=== PATIENT | male | born 1935 | race Caucasian/White ===

== ENCOUNTER 2025-08-31 17:57 | Observation (INO) ==
--- NOTE | 2025-08-31 18:15 | EKG ---
Test Reason : stroke protocol Blood Pressure : */* mmHG Vent. Rate : 77 BPM Atrial Rate : 77 BPM P-R Int : 202 ms QRS Dur : 104 ms QT Int : 390 ms P-R-T Axes : 86 -36 74 degrees QTc Int : 441 ms Sinus rhythm with premature supraventricular complexes and with frequent premature ventricular complexes Left axis deviation Minimal voltage criteria for LVH, may be normal variant ( R in aVL ) Nonspecific ST abnormality Abnormal ECG No previous ECGs available Confirmed by Valentin Randall MD ([id number]) on 09/01/2025 6:40:50 AM Referred By: Confirmed By: Valentin Randall MD
--- NOTE | 2025-08-31 18:39 | RAD ---
EXAM: CHEST, 1 VIEW HISTORY: left side weakness; COMPARISON: None available. FINDINGS: The trachea is midline. The cardiac silhouette is unremarkable. The thoracic aorta is atherosclerotic and tortuous. The lungs are clear without focal infiltrate or effusion. The bony thorax is unremarkable. IMPRESSION: No acute cardiopulmonary disease. THIS IS AN ELECTRONICALLY VERIFIED FINAL REPORT 08/31/2025 6:35 PM - Electronically signed by Dong Alvarez MD
--- NOTE | 2025-08-31 18:41 | CT ---
EXAM: CT HEAD WITHOUT CONTRAST HISTORY: left side weakness; COMPARISON: CT dated October 14, 2020. TECHNIQUE: Axial CT images were obtained through the brain without contrast. Coronal and sagittal reformations were performed. All CT scans at this facility use dose modulation, iterative reconstruction, and/or weight based dosing when appropriate to reduce radiation dose to as low as reasonably achievable. FINDINGS: BRAIN: Acute intraparenchymal bleed involving the left parietal lobe extending to the left temporal lobe measures approximately 7.8 x 4.8 cm in the axial plane and 5.5 cm SI. 6 mm rightward deviation of midline structures measuring at the level of the 3rd ventricle. There is moderate to severe compression upon the body of the left lateral ventricle with mild dilatation of the right lateral ventricle. [place]-white matter differentiation is preserved.Decreased attenuation within the periventricular white matter and the centrum semiovale is nonspecific but would be consistent with chronic small-vessel ischemic changes. Basilar cisterns are preserved. No cerebellar tonsillar ectopia. No evidence for acute calvarial findings. MASTOID AIR CELLS: Visualized mastoid air cells are well aerated. PARANASAL SINUSES: Visualized portions of the paranasal sinuses are well aerated. ORBITS: Visualized portions demonstrate no evidence for acute findings. IMPRESSION: Acute intraparenchymal bleed involving the left parietal lobe extending to the left temporal lobe measures approximately 7.8 x 4.8 cm in the axial plane and 5.5 cm SI. 6 mm rightward deviation of midline structures measuring at the level of the 3rd ventricle. There is moderate to severe compression upon the body of the left lateral ventricle with mild dilatation of the right lateral ventricle. Recommend neurosurgical evaluation. THIS IS AN ELECTRONICALLY VERIFIED FINAL REPORT 08/31/2025 6:38 PM - Electronically signed by Jerome Camarena DO
--- NOTE | 2025-08-31 18:42 | DR.GENAD ---
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 Patient was last seen normal 30 minutes prior to arrival. Daughter in the room was the primary historian who stated that the patient sat down and started mumbling random incomprehensible words. No lucid interval. He was unresponsive to verbal commands. EMS was called and brought to ED for evaluation. Patient was taken to CT which revealed intraparenchymal bleed. Neuro consult was obtained and evaluated the patient. She stated that the patient would most likely need neurosurgery. Complaint/Symptoms Chief Complaint:: EMS report family called d/t pt found in recliner not responding verbally approx one hour ago. On EMS arrival, pt assessed to have apparent stroke-like sx w/ right side weakness and not verbally responding; unknown last known normal per EMS report COVID-19 Coronavirus risk:travel/contact w/high risk person: No Has patient experienced Coronavirus symptoms: No Source History Provided: EMS Mode of Arrival Mode of Arrival: EMS Timing Onset of Chief Complaint: 08/31/25 PMH PMH Past Medical History: Yes Past Medical History: Hypertension and [place] Past Surgical History: Yes Family History History of Family Medical Conditions: No Social History Lives With: Spouse Lives Where: Home Travel Risk Coronavirus risk:travel/contact w/high risk person: No Has patient experienced Coronavirus symptoms: No Infectious screening Have you traveled outside the country in the last 6 months?: No Isolation: Standard ROS Review of Systems Unable to Obtain Due To: Altered mental status PE Other Exam Other Exam: GEN: Lying On exam bed in no acute respiratory distress HEART: RRR LUNGS: CTABL, He is protecting his airway ABD: Soft, non tender, non distended, BS normal NEURO: Patient would not respond to verbal commands or questions. Aphasic with no speech Fixed Head gaze to the left. Bilateral lower extremity spasms. Patient could not follow commands to assess cranial nerves. Patient would not respond to sternal rub. No grimace. No smile. Patient could not hold his left upper extremity up against gravity Patient could not hold his right upper extremity up against gravity, fell to bed Bilateral lower extremities resistance against gravity, legs fell to bed Babinski upward fannning of the toes bilaterally ROR EKG Compared to prior EKG Dated: 08/31/25 Rate: 77 [place]: LAD Rhythm: NSR (With premature ventricular complexes and supraventricular complexes) ST: Normal Opioid Opioid Risk Tool Age (Ed box if 16-45): No History of Preadolescent Sexual Abuse: No Total: 0 Total Score Risk Category: Low Risk Copyright: Elvis SOTELO predicting aberrant behaviors Discharge Plan Diagnosis Discharge Problem: Hemorrhagic cerebrovascular accident (CVA) Discharge Plan Patient Disposition: XFER SHT-TRM HOSP Condition: Stable Health Concerns: Post Hospitalization: new medications and changes needed to prevent readmission or further decline. Pt educated and given instructions on all concerns. Plan of Treatment: Continue with present treatment and follow up plan. Pt is to keep follow up appointment as instructed and take medications as ordered. Orders to Discharge Patient Discharge Orders: Discharge by Transfer to Outside Facility (Routine); Ordered 08/31/25 Ordered By: Dionicio David Follow ups/Referrals Follow ups/Referrals: MANE SIMONS [Nurse Practitioner, Unknown] - 3 days MD,Misc [Primary Care Provider] - 3 days Instructions Stand Alone Forms: Find Help Web Site, Post Hospital Follow Up Care Print Language: [place] Provider Note Additional Notes (Bilateral blindness) who was found to have an intraparenchymal hemorrhage CT of head. Patient is protecting his airway and is hemodynamically stable with initial manual systolic BP of greater than 208/104 on admission. Was not able to get continuous BP monitoring on the monitor. Repeat manual BP was 142 systolic without medication. EKG revealed sinus rhythm with BP 77 with some supraventricular complexes and frequent premature reviewed for complexes. [facility] was contacted for transfer for neurosurgery evaluation. NIH score was 32. Dr. Pedro Ch excepted transfer. Patient will be airlifted to his destination.
[2025-08-31 19:04] LABS: RED CELL DISTRIBUTION WIDTH 14.1 % (11.6-16.5)
[2025-08-31 19:06] LABS: INR 1.10 (0.8-1.3); MEAN PLATELET VOLUME 7.7 fL (7.4-11.0)
[2025-08-31 19:14] LABS: CHOL/HDL RATIO 2.6 (0.0-5.0); COR NA(FOR HYPERGLY) 142 mmol/L (136-145); CREATININE 1.69 mg/dL (0.70-1.30); eGFR NON BLACK RACES 41 (>60)
[2025-08-31] MEDS: NS IV ONE (20:02)
[2025-08-31] MEDS: KEPPRA IV ONE (20:02)
[2025-08-31] MEDS: CARDENE IV PREMIX* 40 MG/200 ML 40 MG/200 ML PIGGYBACK IV ONE (20:04)
--- NOTE | 2025-08-31 21:23 | DR.GENAD ---
HPI Time Seen Time Seen by Provider: 08/31/25 18:30 PCP Primary Care Physician: Cathryn Sena Complaint/Symptoms Chief Complaint:: EMS report family called d/t pt found in recliner not responding verbally approx one hour ago. On EMS arrival, pt assessed to have apparent stroke-like sx w/ right side weakness and not verbally responding; unknown last known normal per EMS report Self Treatment fo Chief Complaint: OTBS at bedside 106 COVID-19 Coronavirus risk:travel/contact w/high risk person: No Has patient experienced Coronavirus symptoms: No Source History Provided: EMS Mode of Arrival Mode of Arrival: EMS Timing Onset of Chief Complaint: 08/31/25 PMH PMH Past Medical History: Yes Past Medical History: Hypertension and [place] Past Surgical History: Yes Family History History of Family Medical Conditions: No Social History Lives With: Spouse Lives Where: Home Travel Risk Coronavirus risk:travel/contact w/high risk person: No Has patient experienced Coronavirus symptoms: No Infectious screening Have you traveled outside the country in the last 6 months?: No Isolation: Standard PE Vital Signs Vitals: Vital Signs Temperature 97.7 F Pulse Rate 86 Pulse Rate 89 Pulse Rate 82 Pulse Rate 88 Pulse Rate 88 Pulse Rate 87 Pulse Rate 91 Pulse Rate 91 Pulse Rate 92 Pulse Rate 94 Pulse Rate 92 Pulse Rate 93 Pulse Rate 95 Pulse Rate 111 Pulse Rate 111 Pulse Rate 95 Pulse Rate 97 Pulse Rate 102 Pulse Rate 93 Pulse Rate 77 Pulse Rate 75 Pulse Rate 74 Pulse Rate 76 Pulse Rate 75 Respiratory Rate 20 Blood Pressure [Left Arm] 142/85 Blood Pressure 172/82 Blood Pressure 166/77 Blood Pressure 154/79 Blood Pressure 186/82 Blood Pressure 174/78 Blood Pressure 191/91 Blood Pressure 188/88 Blood Pressure 200/95 Blood Pressure 223/100 Blood Pressure 221/125 Blood Pressure 215/117 Blood Pressure 113/85 Blood Pressure 208/104 O2 Sat by Pulse Oximetry 93 O2 Sat by Pulse Oximetry 92 O2 Sat by Pulse Oximetry 93 O2 Sat by Pulse Oximetry 92 O2 Sat by Pulse Oximetry 92 O2 Sat by Pulse Oximetry 92 O2 Sat by Pulse Oximetry 91 O2 Sat by Pulse Oximetry 91 O2 Sat by Pulse Oximetry 92 O2 Sat by Pulse Oximetry 91 O2 Sat by Pulse Oximetry 92 O2 Sat by Pulse Oximetry 92 O2 Sat by Pulse Oximetry 92 O2 Sat by Pulse Oximetry 99 O2 Sat by Pulse Oximetry 98 O2 Sat by Pulse Oximetry 98 O2 Sat by Pulse Oximetry 99 O2 Sat by Pulse Oximetry 98 O2 Sat by Pulse Oximetry 99 O2 Sat by Pulse Oximetry 99 O2 Sat by Pulse Oximetry 98 O2 Sat by Pulse Oximetry 98 O2 Sat by Pulse Oximetry 94 O2 Sat by Pulse Oximetry 98 ROR Labs Reviewed 08/31/25 18:36 08/31/25 18:36 Laboratory: WBC 10.5 X10^3/uL (3.6-10.0) H 08/31/25 18:36 RBC 4.05 X10^6/uL (4.7-6.0) L 08/31/25 18:36 Hgb 12.2 g/dL (13.5-18.0) L 08/31/25 18:36 Hct 36.2 % (42.0-54.0) L 08/31/25 18:36 MCV 89.4 fL (80.0-100.0) 08/31/25 18:36 MCH 30.2 pg (27.0-34.0) 08/31/25 18:36 MCHC 33.8 g/dL (33.0-35.0) 08/31/25 18:36 RDW 14.1 % (11.6-16.5) 08/31/25 18:36 Plt Count 265 X10^3/uL (150.0-450.0) 08/31/25 18:36 MPV 7.7 fL (7.4-11.0) 08/31/25 18:36 Neut % (Auto) 58.7 % (42.0-75.0) 08/31/25 18:36 Lymph % (Auto) 24.6 % (21.0-51.0) 08/31/25 18:36 [place] % (Auto) 12.9 % (0.0-13.0) 08/31/25 18:36 Eos % (Auto) 2.7 % (0.9-2.9) 08/31/25 18:36 Baso % (Auto) 1.1 % (0.2-1.0) H 08/31/25 18:36 Neut # (Auto) 6.2 x10^3/uL (2.2-4.8) H 08/31/25 18:36 Lymph # (Auto) 2.6 X10^3/uL (1.3-2.9) 08/31/25 18:36 [place] # (Auto) 1.4 x10^3/uL (0.3-0.8) H 08/31/25 18:36 Eos # (Auto) 0.3 x10^3/uL (0.0-0.2) H 08/31/25 18:36 Baso # (Auto) 0.1 X10^3/uL (0.0-0.1) 08/31/25 18:36 Absolute Nucleated RBC 0.2 /100WBC 08/31/25 18:36 PT 14.3 SECONDS (11.8-14.3) 08/31/25 18:36 INR Target Range - 08/31/25 18:36 INR 1.10 (0.8-1.3) 08/31/25 18:36 APTT 33.6 SECONDS (22.9-36.5) 08/31/25 18:36 PTT Comment - 08/31/25 18:36 Fibrinogen 422 mg/dL (239-489) 08/31/25 18:36 Sodium 141 mmol/L (136-145) 08/31/25 18:36 Corrected Sodium 142 mmol/L (136-145) 08/31/25 18:36 Potassium 3.7 mmol/L (3.5-5.1) 08/31/25 18:36 Chloride 105 mmol/L (98-107) 08/31/25 18:36 Carbon Dioxide 23.0 mmol/L (21-32) 08/31/25 18:36 BUN 24 mg/dL (7-18) H 08/31/25 18:36 Creatinine 1.69 mg/dL (0.70-1.30) H 08/31/25 18:36 Est GFR (MDRD) Af Amer 49 (>60) L 08/31/25 18:36 Est GFR (MDRD) Non-Af 41 (>60) L 08/31/25 18:36 Glucose 128 mg/dL (65-99) H 08/31/25 18:36 Hemoglobin A1c 5.7 % 08/31/25 18:36 Calcium 9.3 mg/dL (8.5-10.1) 08/31/25 18:36 Corrected Calcium TNP 08/31/25 18:36 Total Bilirubin 0.50 mg/dL (0.2-1.0) 08/31/25 18:36 AST 23 Units/L (15-37) 08/31/25 18:36 ALT 11 Units/L (12-78) L 08/31/25 18:36 Alkaline Phosphatase 93 Units/L (46-116) 08/31/25 18:36 Creatine Kinase 54 Units/L (39-308) 08/31/25 18:36 Troponin I High Sens 28.0 ng/L (4.0-60.0) 08/31/25 18:36 Total Protein 7.5 g/dL (6.4-8.2) 08/31/25 18:36 Albumin 3.7 g/dL (3.4-5.0) 08/31/25 18:36 Globulin 3.8 g/dL (2.5-4.5) 08/31/25 18:36 Albumin/Globulin Ratio 1.0 Ratio (1.1-2.1) L 08/31/25 18:36 Triglycerides 111 mg/dL (0-150) 08/31/25 18:36 Cholesterol 134 mg/dL (0-200) 08/31/25 18:36 LDL Cholesterol, Calc 61 mg/dL (0-100) 08/31/25 18:36 HDL Cholesterol 51 mg/dL (40-60) 08/31/25 18:36 Cholesterol/HDL Ratio 2.6 (0.0-5.0) 08/31/25 18:36 Blood Type A POSITIVE 08/31/25 18:41 Antibody Screen Negative 08/31/25 18:36 Opioid Opioid Risk Tool Age (Ed box if 16-45): No History of Preadolescent Sexual Abuse: No Total: 0 Total Score Risk Category: Low Risk Copyright: Elvis SOTELO predicting aberrant behaviors Discharge Plan Diagnosis Discharge Problem: Hemorrhagic cerebrovascular accident (CVA) Discharge Plan Patient Disposition: 09 ADMITTED INPATIENT Condition: Stable Health Concerns: Post Hospitalization: new medications and changes needed to prevent readmission or further decline. Pt educated and given instructions on all concerns. Plan of Treatment: Continue with present treatment and follow up plan. Pt is to keep follow up appointment as instructed and take medications as ordered. Orders to Discharge Patient Discharge Orders: Discharge by Transfer to Outside Facility (Routine); Ordered 08/31/25 Ordered By: Dionicio David Follow ups/Referrals Follow ups/Referrals: MANE ESNA [Nurse Practitioner, Unknown] - 3 days ,Misc [Primary Care Provider] - 3 days Instructions Stand Alone Forms: Find Help Web Site, Post Hospital Follow Up Care Print Language: [place] Provider Note Additional Notes Due to transportation issues there is an extended period of time where the patient was left in the ER. Could not arrange helicopter transport due to shift change and weather. EMS was also difficult to come in a timely fashion. By the time of the ambulance ride of the helicopter was also available. We opted for the airlift due to travel time being shorter. By the time the helicopter mated to the hospital the family had not wished to put Is a patient in hospice. DNR was signed. He was admitted to hospital service. Dr. Shrestha agreed to handle the patient. Prognosis is very poor.
--- NOTE | 2025-08-31 23:16 | DR.GENAD ---
HPI Time Seen Time Seen by Provider: 08/31/25 18:30 PCP Primary Care Physician: Cathryn Sena Complaint/Symptoms Chief Complaint:: EMS report family called d/t pt found in recliner not responding verbally approx one hour ago. On EMS arrival, pt assessed to have apparent stroke-like sx w/ right side weakness and not verbally responding; unknown last known normal per EMS report Self Treatment fo Chief Complaint: OTBS at bedside 106 COVID-19 Coronavirus risk:travel/contact w/high risk person: No Has patient experienced Coronavirus symptoms: No Source History Provided: EMS Mode of Arrival Mode of Arrival: EMS Timing Onset of Chief Complaint: 08/31/25 PMH PMH Past Medical History: Yes Past Medical History: Hypertension and [place] Past Surgical History: Yes Family History History of Family Medical Conditions: No Social History Lives With: Spouse Lives Where: Home Travel Risk Coronavirus risk:travel/contact w/high risk person: No Has patient experienced Coronavirus symptoms: No Infectious screening Have you traveled outside the country in the last 6 months?: No Isolation: Standard PE Vital Signs Vitals: Vital Signs Temperature 97.7 F Pulse Rate 101 Pulse Rate 102 Pulse Rate 96 Pulse Rate 93 Pulse Rate 91 Pulse Rate 86 Pulse Rate 89 Pulse Rate 82 Pulse Rate 88 Pulse Rate 88 Pulse Rate 87 Pulse Rate 91 Pulse Rate 91 Pulse Rate 92 Pulse Rate 94 Pulse Rate 92 Pulse Rate 93 Pulse Rate 95 Pulse Rate 111 Pulse Rate 111 Pulse Rate 95 Pulse Rate 97 Pulse Rate 102 Pulse Rate 93 Pulse Rate 77 Pulse Rate 75 Pulse Rate 74 Pulse Rate 76 Pulse Rate 75 Respiratory Rate 20 Blood Pressure [Left Arm] 142/85 Blood Pressure 172/82 Blood Pressure 166/77 Blood Pressure 154/79 Blood Pressure 186/82 Blood Pressure 174/78 Blood Pressure 191/91 Blood Pressure 188/88 Blood Pressure 200/95 Blood Pressure 223/100 Blood Pressure 221/125 Blood Pressure 215/117 Blood Pressure 113/85 Blood Pressure 208/104 O2 Sat by Pulse Oximetry 97 O2 Sat by Pulse Oximetry 97 O2 Sat by Pulse Oximetry 96 O2 Sat by Pulse Oximetry 93 O2 Sat by Pulse Oximetry 93 O2 Sat by Pulse Oximetry 93 O2 Sat by Pulse Oximetry 92 O2 Sat by Pulse Oximetry 93 O2 Sat by Pulse Oximetry 92 O2 Sat by Pulse Oximetry 92 O2 Sat by Pulse Oximetry 92 O2 Sat by Pulse Oximetry 91 O2 Sat by Pulse Oximetry 91 O2 Sat by Pulse Oximetry 92 O2 Sat by Pulse Oximetry 91 O2 Sat by Pulse Oximetry 92 O2 Sat by Pulse Oximetry 92 O2 Sat by Pulse Oximetry 92 O2 Sat by Pulse Oximetry 99 O2 Sat by Pulse Oximetry 98 O2 Sat by Pulse Oximetry 98 O2 Sat by Pulse Oximetry 99 O2 Sat by Pulse Oximetry 98 O2 Sat by Pulse Oximetry 99 O2 Sat by Pulse Oximetry 99 O2 Sat by Pulse Oximetry 98 O2 Sat by Pulse Oximetry 98 O2 Sat by Pulse Oximetry 94 O2 Sat by Pulse Oximetry 98 ROR Labs Reviewed 08/31/25 18:36 08/31/25 18:36 Laboratory: WBC 10.5 X10^3/uL (3.6-10.0) H 08/31/25 18:36 RBC 4.05 X10^6/uL (4.7-6.0) L 08/31/25 18:36 Hgb 12.2 g/dL (13.5-18.0) L 08/31/25 18:36 Hct 36.2 % (42.0-54.0) L 08/31/25 18:36 MCV 89.4 fL (80.0-100.0) 08/31/25 18:36 MCH 30.2 pg (27.0-34.0) 08/31/25 18:36 MCHC 33.8 g/dL (33.0-35.0) 08/31/25 18:36 RDW 14.1 % (11.6-16.5) 08/31/25 18:36 Plt Count 265 X10^3/uL (150.0-450.0) 08/31/25 18:36 MPV 7.7 fL (7.4-11.0) 08/31/25 18:36 Neut % (Auto) 58.7 % (42.0-75.0) 08/31/25 18:36 Lymph % (Auto) 24.6 % (21.0-51.0) 08/31/25 18:36 [place] % (Auto) 12.9 % (0.0-13.0) 08/31/25 18:36 Eos % (Auto) 2.7 % (0.9-2.9) 08/31/25 18:36 Baso % (Auto) 1.1 % (0.2-1.0) H 08/31/25 18:36 Neut # (Auto) 6.2 x10^3/uL (2.2-4.8) H 08/31/25 18:36 Lymph # (Auto) 2.6 X10^3/uL (1.3-2.9) 08/31/25 18:36 [place] # (Auto) 1.4 x10^3/uL (0.3-0.8) H 08/31/25 18:36 Eos # (Auto) 0.3 x10^3/uL (0.0-0.2) H 08/31/25 18:36 Baso # (Auto) 0.1 X10^3/uL (0.0-0.1) 08/31/25 18:36 Absolute Nucleated RBC 0.2 /100WBC 08/31/25 18:36 PT 14.3 SECONDS (11.8-14.3) 08/31/25 18:36 INR Target Range - 08/31/25 18:36 INR 1.10 (0.8-1.3) 08/31/25 18:36 APTT 33.6 SECONDS (22.9-36.5) 08/31/25 18:36 PTT Comment - 08/31/25 18:36 Fibrinogen 422 mg/dL (239-489) 08/31/25 18:36 Sodium 141 mmol/L (136-145) 08/31/25 18:36 Corrected Sodium 142 mmol/L (136-145) 08/31/25 18:36 Potassium 3.7 mmol/L (3.5-5.1) 08/31/25 18:36 Chloride 105 mmol/L (98-107) 08/31/25 18:36 Carbon Dioxide 23.0 mmol/L (21-32) 08/31/25 18:36 BUN 24 mg/dL (7-18) H 08/31/25 18:36 Creatinine 1.69 mg/dL (0.70-1.30) H 08/31/25 18:36 Est GFR (MDRD) Af Amer 49 (>60) L 08/31/25 18:36 Est GFR (MDRD) Non-Af 41 (>60) L 08/31/25 18:36 Glucose 128 mg/dL (65-99) H 08/31/25 18:36 Hemoglobin A1c 5.7 % 08/31/25 18:36 Calcium 9.3 mg/dL (8.5-10.1) 08/31/25 18:36 Corrected Calcium TNP 08/31/25 18:36 Total Bilirubin 0.50 mg/dL (0.2-1.0) 08/31/25 18:36 AST 23 Units/L (15-37) 08/31/25 18:36 ALT 11 Units/L (12-78) L 08/31/25 18:36 Alkaline Phosphatase 93 Units/L (46-116) 08/31/25 18:36 Creatine Kinase 54 Units/L (39-308) 08/31/25 18:36 Troponin I High Sens 28.0 ng/L (4.0-60.0) 08/31/25 18:36 Total Protein 7.5 g/dL (6.4-8.2) 08/31/25 18:36 Albumin 3.7 g/dL (3.4-5.0) 08/31/25 18:36 Globulin 3.8 g/dL (2.5-4.5) 08/31/25 18:36 Albumin/Globulin Ratio 1.0 Ratio (1.1-2.1) L 08/31/25 18:36 Triglycerides 111 mg/dL (0-150) 08/31/25 18:36 Cholesterol 134 mg/dL (0-200) 08/31/25 18:36 LDL Cholesterol, Calc 61 mg/dL (0-100) 08/31/25 18:36 HDL Cholesterol 51 mg/dL (40-60) 08/31/25 18:36 Cholesterol/HDL Ratio 2.6 (0.0-5.0) 08/31/25 18:36 Blood Type A POSITIVE 08/31/25 18:41 Antibody Screen Negative 08/31/25 18:36 Opioid Opioid Risk Tool Age (Ed box if 16-45): No History of Preadolescent Sexual Abuse: No Total: 0 Total Score Risk Category: Low Risk Copyright: Elvis SOTELO predicting aberrant behaviors Discharge Plan Diagnosis Discharge Problem: Hemorrhagic cerebrovascular accident (CVA) Discharge Plan Patient Disposition: ADMITTED INPATIENT Condition: Stable
[2025-09-01] MEDS: OFIRMEV IV 1000 MG VIAL 1,000 MG/100 ML VIAL IV PRN (12:58)
[2025-09-01] MEDS: ISOPTO ATROPINE SL PRN (12:58)
[2025-09-01] MEDS: ATIVAN INJ 2 MG VIAL IVP PRN (12:58)
--- NOTE | 2025-09-01 13:27 | DR.H&P ---
H&P History & Physical for Day of: H&P Date: 09/01/25 Chief Complaint Chief Complaint: stroke History of Present Illness History of Present Illness: Patient seen with nurse and daughter at bedside. Was found in his recliner with abnormal mentation and unilateral weakness. Transported to ER where he was found to have a large hemorrhagic stroke. Initial plans were to [facility] [place] for neurosurgical consultation. After discussion, family opted for palliative care and hospice referral. He was admitted overnight for supportive care. There have been no changes throughout the night in the morning per daughter and staff. Has not woken up throughout the night. Social: Local resident, no tobacco/alcohol/illicit drug use. He is . ROS: 12 point ROS unobtainable from patient. Nurses and daughter only report sleep throughout the night. Slightly ragged breathing. PE: Thin, well-developed, well-nourished, elderly male in no acute distress. GCS of 3. Regular, slightly tachypneic respirations. There are some referred upper airway noises along with coarse breath sounds throughout the lungs. Heart regular rate and rhythm. Bowel sounds are present but soft. Belly is nontender nondistended. Past Medical History Past Medical History: Hypertension and HI Past Surgical History Additional Surgical History: coronary catheterization Medications Home Medications: Home Medications Medication Instructions Recorded Confirmed Type Unobtainable 08/31/25 08/31/25 History Allergies Allergies Allergy/AdvReac Type Severity Reaction Status Date / Time Sulfa (Sulfonamide Allergy Verified 08/31/25 18:26 Antibiotics) Labs 08/31/25 18:36 08/31/25 18:36 Labs: Laboratory WBC 10.5 X10^3/uL (3.6-10.0) H 08/31/25 18:36 RBC 4.05 X10^6/uL (4.7-6.0) L 08/31/25 18:36 Hgb 12.2 g/dL (13.5-18.0) L 08/31/25 18:36 Hct 36.2 % (42.0-54.0) L 08/31/25 18:36 MCV 89.4 fL (80.0-100.0) 08/31/25 18:36 MCH 30.2 pg (27.0-34.0) 08/31/25 18:36 MCHC 33.8 g/dL (33.0-35.0) 08/31/25 18:36 RDW 14.1 % (11.6-16.5) 08/31/25 18:36 Plt Count 265 X10^3/uL (150.0-450.0) 08/31/25 18:36 MPV 7.7 fL (7.4-11.0) 08/31/25 18:36 Neut % (Auto) 58.7 % (42.0-75.0) 08/31/25 18:36 Lymph % (Auto) 24.6 % (21.0-51.0) 08/31/25 18:36 [place] % (Auto) 12.9 % (0.0-13.0) 08/31/25 18:36 Eos % (Auto) 2.7 % (0.9-2.9) 08/31/25 18:36 Baso % (Auto) 1.1 % (0.2-1.0) H 08/31/25 18:36 Neut # (Auto) 6.2 x10^3/uL (2.2-4.8) H 08/31/25 18:36 Lymph # (Auto) 2.6 X10^3/uL (1.3-2.9) 08/31/25 18:36 [place] # (Auto) 1.4 x10^3/uL (0.3-0.8) H 08/31/25 18:36 Eos # (Auto) 0.3 x10^3/uL (0.0-0.2) H 08/31/25 18:36 Baso # (Auto) 0.1 X10^3/uL (0.0-0.1) 08/31/25 18:36 Absolute Nucleated RBC 0.2 /100WBC 08/31/25 18:36 PT 14.3 SECONDS (11.8-14.3) 08/31/25 18:36 INR Target Range - 08/31/25 18:36 INR 1.10 (0.8-1.3) 08/31/25 18:36 APTT 33.6 SECONDS (22.9-36.5) 08/31/25 18:36 PTT Comment - 08/31/25 18:36 Fibrinogen 422 mg/dL (239-489) 08/31/25 18:36 Sodium 141 mmol/L (136-145) 08/31/25 18:36 Corrected Sodium 142 mmol/L (136-145) 08/31/25 18:36 Potassium 3.7 mmol/L (3.5-5.1) 08/31/25 18:36 Chloride 105 mmol/L (98-107) 08/31/25 18:36 Carbon Dioxide 23.0 mmol/L (21-32) 08/31/25 18:36 BUN 24 mg/dL (7-18) H 08/31/25 18:36 Creatinine 1.69 mg/dL (0.70-1.30) H 08/31/25 18:36 Est GFR (MDRD) Af Amer 49 (>60) L 08/31/25 18:36 Est GFR (MDRD) Non-Af 41 (>60) L 08/31/25 18:36 Glucose 128 mg/dL (65-99) H 08/31/25 18:36 Hemoglobin A1c 5.7 % 08/31/25 18:36 Calcium 9.3 mg/dL (8.5-10.1) 08/31/25 18:36 Corrected Calcium TNP 08/31/25 18:36 Total Bilirubin 0.50 mg/dL (0.2-1.0) 08/31/25 18:36 AST 23 Units/L (15-37) 08/31/25 18:36 ALT 11 Units/L (12-78) L 08/31/25 18:36 Alkaline Phosphatase 93 Units/L (46-116) 08/31/25 18:36 Creatine Kinase 54 Units/L (39-308) 08/31/25 18:36 Troponin I High Sens 28.0 ng/L (4.0-60.0) 08/31/25 18:36 Total Protein 7.5 g/dL (6.4-8.2) 08/31/25 18:36 Albumin 3.7 g/dL (3.4-5.0) 08/31/25 18:36 Globulin 3.8 g/dL (2.5-4.5) 08/31/25 18:36 Albumin/Globulin Ratio 1.0 Ratio (1.1-2.1) L 08/31/25 18:36 Triglycerides 111 mg/dL (0-150) 08/31/25 18:36 Cholesterol 134 mg/dL (0-200) 08/31/25 18:36 LDL Cholesterol, Calc 61 mg/dL (0-100) 08/31/25 18:36 HDL Cholesterol 51 mg/dL (40-60) 08/31/25 18:36 Cholesterol/HDL Ratio 2.6 (0.0-5.0) 08/31/25 18:36 Blood Type A POSITIVE 08/31/25 18:41 Antibody Screen Negative 08/31/25 18:36 Physical Exam Vital Signs: Vital Signs Temperature 98.9 F Temperature 99.6 F Pulse Rate [Left Radial] 107 Pulse Rate [Left Radial] 103 Respiratory Rate 22 Respiratory Rate 20 Blood Pressure [Left Arm] 210/99 Blood Pressure [Left Arm] 186/100 O2 Sat by Pulse Oximetry 92 O2 Sat by Pulse Oximetry 95 Assessment/Plan (1) Hemorrhagic cerebrovascular accident (CVA): Narrative Support Text: Comfort measures. Referral to hospice in the morning. Status: Acute (2) Admission for hospice care: Status: Acute
[2025-09-01] MEDS: MORPHINE SULFATE INJ 2 MG INJ IVP PRN (16:42)
[2025-09-01] MEDS ORDERED: CATAPRES-TTS-1 TD SCH (18:00)
[2025-09-01] MEDS: APRESOLINE INJ 20 MG VIAL IVP PRN (18:08)
[2025-09-02] MEDS: CARDENE IV PREMIX* 40 MG/200 ML 40 MG/200 ML PIGGYBACK IV ONE (01:05)
[2025-09-02 07:25] VITALS: TEMP 99.2
[2025-09-02] MEDS: MORPHINE SULFATE INJ 2 MG INJ IVP PRN (09:15)
[2025-09-02 12:01] VITALS: PULSE 151; O2SAT 96
[2025-09-02 12:02] VITALS: BP 146/71
[2025-09-02 14:29] VITALS: RESP 23
--- NOTE | 2025-09-02 15:03 | PCM.DCPLAN ---
DISCHARGE SUMMARY Admission Date Date of Admission: 08/31/25 Discharge Date Discharge Date: 09/02/25 Admission Diagnoses (1) Hemorrhagic cerebrovascular accident (CVA): Status: Acute (2) Admission for hospice care: Status: Acute Discharge Medications Discharge Medications: Home Medication List Unobtainable 08/31/25 [History] Prescriptions: Hospital Course Vital Signs: Vital Signs Temperature 99.1 F Temperature 100.8 F Temperature 98.6 F Pulse Rate [Left Radial] 104 Pulse Rate 126 Pulse Rate 128 Pulse Rate 126 Pulse Rate 120 Pulse Rate 121 Pulse Rate 126 Pulse Rate 122 Pulse Rate 130 Pulse Rate 133 Pulse Rate 136 Pulse Rate 148 Pulse Rate 149 Pulse Rate 147 Pulse Rate 148 Pulse Rate 162 Pulse Rate 156 Pulse Rate 135 Pulse Rate 139 Pulse Rate 133 Pulse Rate 125 Pulse Rate 134 Pulse Rate 138 Pulse Rate 150 Pulse Rate 138 Pulse Rate 129 Respiratory Rate 33 Respiratory Rate 29 Respiratory Rate 32 Respiratory Rate 32 Respiratory Rate 30 Respiratory Rate 33 Respiratory Rate 31 Respiratory Rate 33 Respiratory Rate 31 Respiratory Rate 35 Respiratory Rate 36 Respiratory Rate 35 Respiratory Rate 34 Respiratory Rate 38 Respiratory Rate 35 Respiratory Rate 37 Respiratory Rate 35 Respiratory Rate 34 Respiratory Rate 37 Respiratory Rate 34 Respiratory Rate 34 Respiratory Rate 33 Respiratory Rate 34 Respiratory Rate 32 Respiratory Rate 37 Respiratory Rate 33 Respiratory Rate 35 Respiratory Rate 41 Respiratory Rate 41 Respiratory Rate 40 Blood Pressure [Left Arm] 165/82 Blood Pressure 141/76 Blood Pressure 185/91 Blood Pressure 188/87 Blood Pressure 173/79 Blood Pressure 151/72 Blood Pressure 157/80 Blood Pressure 154/75 Blood Pressure 163/91 Blood Pressure 181/90 Blood Pressure 162/86 Blood Pressure 149/74 Blood Pressure 156/81 Blood Pressure 168/77 Blood Pressure 139/85 O2 Sat by Pulse Oximetry 94 O2 Sat by Pulse Oximetry 88 O2 Sat by Pulse Oximetry 87 O2 Sat by Pulse Oximetry 89 O2 Sat by Pulse Oximetry 97 O2 Sat by Pulse Oximetry 94 O2 Sat by Pulse Oximetry 96 O2 Sat by Pulse Oximetry 92 O2 Sat by Pulse Oximetry 93 O2 Sat by Pulse Oximetry 93 O2 Sat by Pulse Oximetry 88 O2 Sat by Pulse Oximetry 92 O2 Sat by Pulse Oximetry 88 O2 Sat by Pulse Oximetry 88 O2 Sat by Pulse Oximetry 88 O2 Sat by Pulse Oximetry 89 O2 Sat by Pulse Oximetry 91 O2 Sat by Pulse Oximetry 90 O2 Sat by Pulse Oximetry 90 O2 Sat by Pulse Oximetry 90 O2 Sat by Pulse Oximetry 89 O2 Sat by Pulse Oximetry 87 O2 Sat by Pulse Oximetry 85 O2 Sat by Pulse Oximetry 83 O2 Sat by Pulse Oximetry 83 O2 Sat by Pulse Oximetry 91 Latest Lab Results: Laboratory Last Values WBC 10.5 X10^3/uL (3.6-10.0) H 08/31/25 18:36 RBC 4.05 X10^6/uL (4.7-6.0) L 08/31/25 18:36 Hgb 12.2 g/dL (13.5-18.0) L 08/31/25 18:36 Hct 36.2 % (42.0-54.0) L 08/31/25 18:36 MCV 89.4 fL (80.0-100.0) 08/31/25 18:36 MCH 30.2 pg (27.0-34.0) 08/31/25 18:36 MCHC 33.8 g/dL (33.0-35.0) 08/31/25 18:36 RDW 14.1 % (11.6-16.5) 08/31/25 18:36 Plt Count 265 X10^3/uL (150.0-450.0) 08/31/25 18:36 MPV 7.7 fL (7.4-11.0) 08/31/25 18:36 Neut % (Auto) 58.7 % (42.0-75.0) 08/31/25 18:36 Lymph % (Auto) 24.6 % (21.0-51.0) 08/31/25 18:36 [place] % (Auto) 12.9 % (0.0-13.0) 08/31/25 18:36 Eos % (Auto) 2.7 % (0.9-2.9) 08/31/25 18:36 Baso % (Auto) 1.1 % (0.2-1.0) H 08/31/25 18:36 Neut # (Auto) 6.2 x10^3/uL (2.2-4.8) H 08/31/25 18:36 Lymph # (Auto) 2.6 X10^3/uL (1.3-2.9) 08/31/25 18:36 [place] # (Auto) 1.4 x10^3/uL (0.3-0.8) H 08/31/25 18:36 Eos # (Auto) 0.3 x10^3/uL (0.0-0.2) H 08/31/25 18:36 Baso # (Auto) 0.1 X10^3/uL (0.0-0.1) 08/31/25 18:36 Absolute Nucleated RBC 0.2 /100WBC 08/31/25 18:36 PT 14.3 SECONDS (11.8-14.3) 08/31/25 18:36 INR Target Range - 08/31/25 18:36 INR 1.10 (0.8-1.3) 08/31/25 18:36 APTT 33.6 SECONDS (22.9-36.5) 08/31/25 18:36 PTT Comment - 08/31/25 18:36 Fibrinogen 422 mg/dL (239-489) 08/31/25 18:36 Sodium 141 mmol/L (136-145) 08/31/25 18:36 Corrected Sodium 142 mmol/L (136-145) 08/31/25 18:36 Potassium 3.7 mmol/L (3.5-5.1) 08/31/25 18:36 Chloride 105 mmol/L (98-107) 08/31/25 18:36 Carbon Dioxide 23.0 mmol/L (21-32) 08/31/25 18:36 BUN 24 mg/dL (7-18) H 08/31/25 18:36 Creatinine 1.69 mg/dL (0.70-1.30) H 08/31/25 18:36 Est GFR (MDRD) Af Amer 49 (>60) L 08/31/25 18:36 Est GFR (MDRD) Non-Af 41 (>60) L 08/31/25 18:36 Glucose 128 mg/dL (65-99) H 08/31/25 18:36 Hemoglobin A1c 5.7 % 08/31/25 18:36 Calcium 9.3 mg/dL (8.5-10.1) 08/31/25 18:36 Corrected Calcium TNP 08/31/25 18:36 Total Bilirubin 0.50 mg/dL (0.2-1.0) 08/31/25 18:36 AST 23 Units/L (15-37) 08/31/25 18:36 ALT 11 Units/L (12-78) L 08/31/25 18:36 Alkaline Phosphatase 93 Units/L (46-116) 08/31/25 18:36 Creatine Kinase 54 Units/L (39-308) 08/31/25 18:36 Troponin I High Sens 28.0 ng/L (4.0-60.0) 08/31/25 18:36 Total Protein 7.5 g/dL (6.4-8.2) 08/31/25 18:36 Albumin 3.7 g/dL (3.4-5.0) 08/31/25 18:36 Globulin 3.8 g/dL (2.5-4.5) 08/31/25 18:36 Albumin/Globulin Ratio 1.0 Ratio (1.1-2.1) L 08/31/25 18:36 Triglycerides 111 mg/dL (0-150) 08/31/25 18:36 Cholesterol 134 mg/dL (0-200) 08/31/25 18:36 LDL Cholesterol, Calc 61 mg/dL (0-100) 08/31/25 18:36 HDL Cholesterol 51 mg/dL (40-60) 08/31/25 18:36 Cholesterol/HDL Ratio 2.6 (0.0-5.0) 08/31/25 18:36 Blood Type A POSITIVE 08/31/25 18:41 Antibody Screen Negative 08/31/25 18:36
== END 2025-09-02 15:00 | disposition hospice, home (50) ==
LOC: MED/SURG 17:57 → ER 17:57 → MED/SURG 23:10 → ICU 09-02 00:49
PROVIDERS: ADMIT Family Medicine; ATTEND Family Medicine
DX: I61.9 Nontraumatic intracerebral hemorrhage, unspecified; R94.31 Abnormal electrocardiogram [ECG] [EKG]; D64.9 Anemia, unspecified; R41.82 Altered mental status, unspecified; R06.82 Tachypnea, not elsewhere classified; Z66 Do not resuscitate; D72.829 Elevated white blood cell count, unspecified; R06.89 Other abnormalities of breathing; Z51.5 Encounter for palliative care; R73.09 Other abnormal glucose; R79.89 Other specified abnormal findings of blood chemistry; R53.1 Weakness